=== PATIENT | female | born 1955 | race Hispanic/Latino ===

== ENCOUNTER 2017-08-13 15:28 | Emergency (ER) | payer BC, OTHER ==
[2017-08-13] MEDS ORDERED: MECLIZINE HCL 25 MG TABLET ONE (16:02)
[2017-08-13 16:04] LABS: BASOPHILS % (AUTO) 0.4 % (0.0-5.0); EOSINOPHILS % (AUTO) 1.7 % (0.0-8.0); HEMATOCRIT 40.5 % (36-48); LYMPHOCYTES % (AUTO) 37.1 % (21.0-51.0); MEAN CORPUSCULAR HEMOGLOBIN 29.7 pg (27.0-33.0); MEAN CORPUSCULAR VOLUME 87.5 fL (79-99); NEUTROPHILS % (AUTO) 51.8 % (40.0-77.0); PLATELET COUNT (AUTO) 224 K/uL (130-400); RED BLOOD CELL COUNT(AUTO) 4.63 MIL/uL (4.00-5.50); RED CELL DISTRIBUTION WIDTH 13.1 % (11.0-15.5); WHITE BLOOD COUNT (AUTO) 6.2 K/uL (4.8-10.8)
[2017-08-13 16:18] LABS: CREATININE 0.8 mg/dL (0.5-1.5); POTASSIUM 3.7 mmol/L (3.5-5.1)
[2017-08-13 16:23] LABS: ALBUMIN 3.7 g/dL (3.5-5.0); BILIRUBIN,TOTAL 0.3 mg/dL (0.2-1.0); TOTAL PROTEIN, SERUM 7.2 g/dL (6.0-8.3)
[2017-08-13 16:36] LABS: B-TYPE NATRIURETIC PEPTIDE 7 pg/mL (0-100)
== END 2017-08-13 17:33 | disposition home or self-care (01) ==
LOC: EDH 15:28
DX: H81.399 Other peripheral vertigo, unspecified ear (principal)
CPT/HCPCS: 36415; 80053; 83880; 84484; 85025; 87880; 93005

== ENCOUNTER → 2018-05-06 | Outpatient (CLI) | payer BC | END | disposition home or self-care (01) | LOC: SHCH 15:11 | PROVIDERS: ATTEND Internal Medicine Cardiovascular Disease | DX: R94.31 Abnormal electrocardiogram [ECG] [EKG] (principal) | CPT/HCPCS: 93306 ==

== ENCOUNTER 2018-10-22 07:10 | Emergency (ER) | payer BC ==
[2018-10-22 07:40] LABS: BASOPHILS % (AUTO) 0.6 % (0.0-5.0); EOSINOPHILS % (AUTO) 1.2 % (0.0-8.0); HEMATOCRIT 40.3 % (36-48); LYMPHOCYTES % (AUTO) 30.2 % (21.0-51.0); MEAN CORPUSCULAR HEMOGLOBIN 29.8 pg (27.0-33.0); MEAN CORPUSCULAR HGB CONC 33.8 g/dL (32.0-36.0); MEAN CORPUSCULAR VOLUME 88.1 fL (79-99); MONOCYTES % (AUTO) 7.4 % (3.0-13.0); NEUTROPHILS % (AUTO) 60.6 % (40.0-77.0); PLATELET COUNT (AUTO) 205 K/uL (130-400); RED BLOOD CELL COUNT(AUTO) 4.57 MIL/uL (4.00-5.50); WHITE BLOOD COUNT (AUTO) 5.3 K/uL (4.8-10.8)
[2018-10-22 07:49] LABS: CARBON DIOXIDE 24 mmol/L (21-32); CHLORIDE 105 mmol/L (101-111); CREATININE 0.7 mg/dL (0.5-1.5); GLOMERULAR FILTR. RATE CALC 90 mL/min (>60); GLUCOSE,RANDOM 151 mg/dL (70-105); POTASSIUM 4.7 mmol/L (3.5-5.1); SODIUM SERUM 140 mmol/L (136-145); UREA NITROGEN, BLOOD 22 mg/dL (7-18)
[2018-10-22 07:54] LABS: ALANINE AMINOTRANSFERASE 43 U/L (12-78); ALBUMIN 3.9 g/dL (3.5-5.0); ASPARTATE AMINOTRANSFERASE 42 U/L (10-37); BILIRUBIN,DIRECT < 0.1 mg/dL (0.0-0.3); BILIRUBIN,TOTAL 0.3 mg/dL (0.2-1.0); LIPASE 148 U/L (114-286); TOTAL PROTEIN, SERUM 7.7 g/dL (6.0-8.3)
[2018-10-22] MEDS ORDERED: ONDANSETRON HCL 4 MG/2 ML VIAL ONE (07:56)
[2018-10-22] MEDS ORDERED: KETOROLAC TROMETHAMINE 30MG/ML ONE (07:56)
[2018-10-22] MEDS ORDERED: ACETAMINOPHEN 325 MG TAB ONE (07:57)
[2018-10-22 08:06] LABS: APPEARANCE,URINE Clear (CLEAR); BILIRUBIN,URINE Negative (NEGATIVE); COLOR,URINE Yellow (YELLOW); GLUCOSE, URINE (UA) Negative (NEGATIVE); KETONES,URINE Negative (NEGATIVE); LEUKOCYTE ESTERASE ,URINE Negative (NEGATIVE); NITRATE,URINE Negative (NEGATIVE); OCCULT BLOOD,URINE Moderate (NEGATIVE); PROTEIN,URINE Negative (NEGATIVE)
[2018-10-22 08:42] LABS: BACTERIA,URINE Rare /HPF (None Seen); WBC,URINE 0-1 /HPF (0-1)
== END 2018-10-22 08:58 | disposition home or self-care (01) ==
LOC: EDH 07:10
DX: N13.2 Hydronephrosis with renal and ureteral calculous obstruction (principal); Z90.710 Acquired absence of both cervix and uterus; Z98.890 Other specified postprocedural states; Z87.891 Personal history of nicotine dependence
CPT/HCPCS: 36415; 74176; 80048; 80076; 81001; 83690; 84484; 85025; 93005; 96374; 96375; 99285; J1885; J2405

== ENCOUNTER 2022-04-06 19:24 | Emergency (ER) | payer BC, MEDICARE ==
[~2022-04-06] VITALS: Ht 154.9 cm; Wt 101.6 kg
[2022-04-06] MEDS ORDERED: DIPHENHYDRAMINE HCL 25 MG CAPSULE ONE (19:52)
[2022-04-06] MEDS ORDERED: FAMOTIDINE 20MG TAB ONE (19:52)
[2022-04-06] MEDS ORDERED: SOLU-MEDROL 125MG VIAL ONE (19:55)
[2022-04-06] MEDS ORDERED: DIPHENHYDRAMINE HCL 25 MG CAPSULE PO ONE (20:00)
[2022-04-06] MEDS ORDERED: FAMOTIDINE 20MG TAB PO ONE (20:00)
[2022-04-06] MEDS ORDERED: PRED20TA3 PO (20:53)
[2022-04-06] MEDS ORDERED: FAMO-136 PO (20:53)
[2022-04-06] MEDS ORDERED: CETI1SOL17 PO (20:53)
[2022-04-06 21:00] VITALS: BP 147/74
== END 2022-04-06 21:07 | disposition home or self-care (01) ==
LOC: EDH 19:24
DX: R22.0 Localized swelling, mass and lump, head (principal); T46.4X5A Adverse effect of angiotensin-converting-enzyme inhibitors, initial encounter; E66.9 Obesity, unspecified; I10 Essential (primary) hypertension; Z68.41 Body mass index [BMI] 40.0-44.9, adult; Z79.52 Long term (current) use of systemic steroids; Y92.89 Other specified places as the place of occurrence of the external cause
CPT/HCPCS: 99283; 96374; 87880; Q0163; J2930

== ENCOUNTER 2024-06-23 20:48 | Observation (INO) | payer MEDICARE ==
[~2024-06-23] VITALS: Ht 154.9 cm; Wt 102.1 kg
[~2024-06-23 20:48] MED LIST: CETI1SOL17 PO; FAMO-136 PO; PRED20TA3 PO
[2024-06-23 21:22] LABS: BASOPHILS # (AUTO) 0.03 K/uL (0.00-0.20); BASOPHILS % (AUTO) 0.3 % (0.0-5.0); EOSINOPHILS # (AUTO) 0.14 K/uL (0.00-0.70); EOSINOPHILS % (AUTO) 1.6 % (0.0-8.0); HEMATOCRIT 42.9 % (36-48); IMMATURE GRANULOCYTE ABSOLUTE 0.03 K/uL (0-1); LYMPHOCYTES # (AUTO) 4.4 K/uL (1.0-4.8); LYMPHOCYTES % (AUTO) 49.7 % (21.0-51.0); MEAN CORPUSCULAR HGB CONC 33.8 g/dL (32.0-36.0); MEAN CORPUSCULAR VOLUME 88.8 fL (79-99); MONOCYTES # (AUTO) 0.7 K/uL (0.1-1.0); MONOCYTES % (AUTO) 8.3 % (3.0-13.0); NEUTROPHILS # (AUTO) 3.6 K/uL (1.8-7.7); NEUTROPHILS % (AUTO) 39.8 % (40.0-77.0); NUCLEATED RED BLOOD CELLS 0.2 % (0.0-0.19); PLATELET COUNT (AUTO) 202 K/uL (130-400); RED BLOOD CELL COUNT(AUTO) 4.83 MIL/uL (4.00-5.50); RED CELL DISTRIBUTION WIDTH 12.9 % (11.0-15.5); WHITE BLOOD COUNT (AUTO) 8.9 K/uL (4.8-10.8)
[2024-06-23 21:29] LABS: CREATININE 0.9 mg/dL (0.5-1.0); POTASSIUM 3.6 mmol/L (3.5-5.1)
[2024-06-23 21:32] LABS: PROTHROMBIN TIME 10.8 SEC (9.6-11.6)
[2024-06-23 21:33] LABS: PARTIAL THROMBOPLASTIN TIME 26.5 SEC (26.3-35.5)
[2024-06-23 21:43] LABS: B-TYPE NATRIURETIC PEPTIDE 68 pg/mL (0-100)
[2024-06-23 21:45] LABS: ADD UA MICROSCOPIC YES; APPEARANCE,URINE CLEAR (CLEAR); BILIRUBIN,URINE NEGATIVE (NEGATIVE); COLOR,URINE COLORLESS (YELLOW); GLUCOSE, URINE (UA) 50 mg/dL (NEGATIVE); KETONES,URINE NEGATIVE (NEGATIVE); LEUKOCYTE ESTERASE ,URINE 25 Leu/uL (NEGATIVE); NITRATE,URINE NEGATIVE (NEGATIVE); PH,URINE 6.5 (5.0-8.0); PROTEIN,URINE NEGATIVE (NEGATIVE); UROBILINOGEN,URINE 0.2 mg/dL (0.2-1.0)
[2024-06-23 21:47] LABS: BACTERIA,URINE RARE /HPF (None Seen); MUCUS,URINE RARE LPF (None Seen); SQUAMOUS EPITHELIAL CELL,UR RARE /HPF (0-2); WBC CLUMP RARE /HPF (0-1)
--- NOTE | 2024-06-23 21:52 | ERN ---
ED Note History of Present Illness Stated Complaint: CHEST PAIN,SOB,HEADACHES,NAUSEA Chief Complaint: Chest Pain Time Seen by MD: 21:15 Dictation: This is a 69-year-old female who started experiencing midsternal chest pain and severe palpitations starting at 20 0 0 hours. Apparently she was doing dishes when she began experiencing this tightness radiating to the neck. She felt short of breath had some nausea and needed to burp. She does not have any cardiac history she reports dizziness and nonspecific headache but no loss of consciousness. No facial droop diplopia slurred speech motor weakness or seizure activity. She admits to taking her high blood pressure medications at home. Denied any thyroid problems. No fever chills or rigors. No history of any hematemesis or bleeding of any sort. Patient is not on any anticoagulation. She did not have this kind of an episode or event any time in the past. Initially when she arrived her heart rate was 173 and a stat EKG was obtained which showed supraventricular tachycardia. Within minutes she converted to normal sinus rhythm spontaneously. Temperature 98.8 pulse 176 respirations 20 blood pressure 177/128 with a pulse oximetry of 94% on room Known history of hypertension. Allergies: Coded Allergies: No Known Allergies (Unverified Allergy, Unknown, 04/06/22) Home Meds Active Scripts Cetirizine HCl (Zyrtec Syrup 1 mg/1 ml) 1 Mg/1 Ml Solution, 10 MG PO BID for 5 Days, #120 ML Prov:MOI ANGEL 04/06/22 Famotidine (Pepcid) 20 Mg Tablet, 20 MG PO BID, #30 TAB Prov:MOI ANGEL 04/06/22 Prednisone (Prednisone) 20 Mg Tablet, 40 MG PO DAILY for 5 Days, #10 TAB Prov:MOI ANGEL 04/06/22 Past Medical History Past Medical History: Hypertension Additional Past Medical Hx: Obesity Surgical History: Hysterectomy, Family History: Negative Social History: Negative History: Not Applicable RN Note Reviewed/Agreed w/PFSH: Yes Review of System Dictation Constitutional: Negative for fever,chills, and weight loss Eyes: Negative for injury, pain,redness, and discharge ENT: Negative for injury,pain or swelling Cardiovascular: Positive for chest pain, palpitations, and denies edema Respiratory: Positive for shortness of breath, denied cough, and wheezing, Abdomen/GI: Negative for abdominal pain, nausea, vomiting, diarrhea, and constipation Back: Negative for injury and pain : Negative for injury, bleeding and discharge MS/Extremity: Negative for injury and deformity Skin: Negative for rash, and discoloration Neuro: Positive for headache, denied weakness, numbness, tingling, and seizure Psych: Negative for suicide ideation, homicidal ideation, and hallucinations Initial Vital Sign VS Vital Signs Date Time Temp Pulse Resp B/P (MAP) Pulse Ox O2 Delivery O2 Flow Rate FiO2 06/23/24 20:57 98.8 176 20 177/128 98 Room Air 06/23/24 21:15 0 21 Physical Exam Dictation General: awake, alert, NAD morbidly obese, generally anxious Head/Face: Normocephalic, atraumatic Eyes: PERRL, EOMI, vision at baseline ENT: oral cavity clear, TMs clear, no signs of infection Neck: Trachea midline, supple, no nuchal rigidity Cardiovascular: RRR, normal S1/S2, No MRGs, no JVD Respiratory: CTAB, no respiratory distress, No rales or wheezes Abdomen: Soft, non-tender, non-distended, normal bowel sounds, no guarding or rebound. Skin: Warm, dry, normal turgor, no rash MS/Extremity: Pulses equal, no cyanosis, neurovascular intact, FROM Neuro: COAx4, GCS 15, strength 5/5, CN 2-12 intact, normal cerebellar exam, normal gait, Psych: Normal behavior, mood, and affect normal Extremities-trace edema without any palpable cords, Homans sign is negative Results (Laboratory/Radiology) Laboratory/Radiology Laboratory Tests Test 06/23/24 21:11 06/23/24 21:35 06/23/24 21:38 06/24/24 01:08 White Blood Count 8.9 K/uL (4.8-10.8) Red Blood Count 4.83 MIL/uL (4.00-5.50) Hemoglobin 14.5 g/dL (12.0-16.0) Hematocrit 42.9 % (36-48) Mean Corpuscular Volume 88.8 fL (79-99) Mean Corpuscular Hemoglobin 30.0 pg (27.0-33.0) Mean Corpuscular Hemoglobin Concent 33.8 g/dL (32.0-36.0) Red Cell Distribution Width 12.9 % (11.0-15.5) Platelet Count 202 K/uL (130-400) Mean Platelet Volume 10.7 fL (7.5-10.5) H Immature Granulocyte % (Auto) 0.3 % (0-1) Neutrophils (%) (Auto) 39.8 % (40.0-77.0) L Lymphocytes (%) (Auto) 49.7 % (21.0-51.0) Monocytes (%) (Auto) 8.3 % (3.0-13.0) Eosinophils (%) (Auto) 1.6 % (0.0-8.0) Basophils (%) (Auto) 0.3 % (0.0-5.0) Neutrophils # (Auto) 3.6 K/uL (1.8-7.7) Lymphocytes # (Auto) 4.4 K/uL (1.0-4.8) Monocytes # (Auto) 0.7 K/uL (0.1-1.0) Eosinophils # (Auto) 0.14 K/uL (0.00-0.70) Basophils # (Auto) 0.03 K/uL (0.00-0.20) Absolute Immature Granulocyte (auto 0.03 K/uL (0-1) Nucleated Red Blood Cells 0.2 % (0.0-0.19) H Prothrombin Time 10.8 SEC (9.6-11.6) Prothromb Time International Ratio 1.00 (0.85-1.15) Activated Partial Thromboplast Time 26.5 SEC (26.3-35.5) Sodium Level 143 mmol/L (136-145) Potassium Level 3.6 mmol/L (3.5-5.1) Chloride Level 107 mmol/L (101-111) Carbon Dioxide Level 28 mmol/L (21-32) Blood Urea Nitrogen 13 mg/dL (7-18) Creatinine 0.9 mg/dL (0.5-1.0) Glomerular Filtration Rate Calc 70 mL/min (>90) Random Glucose 204 mg/dL (70-105) H Total Calcium 8.9 mg/dL (8.5-10.1) Total Creatine Kinase 121 U/L (21-232) Troponin I High Sensitivity 12 ng/L (4-50) 83 ng/L (4-50) *H B-Type Natriuretic Peptide 68 pg/mL (0-100) Troponin I < 0.05 ng/mL (0.00-0.05) Urine Color COLORLESS (YELLOW) Urine Appearance CLEAR (CLEAR) Urine pH 6.5 (5.0-8.0) Urine Specific [place] 1.007 (1.001-1.031) Urine Protein NEGATIVE mg/dL (NEGATIVE) Urine Glucose (UA) 50 mg/dL (NEGATIVE) H Urine Ketones NEGATIVE mg/dL (NEGATIVE) Urine Occult Blood +- (TRACE) (NEGATIVE) H Urine Nitrate NEGATIVE (NEGATIVE) Urine Bilirubin NEGATIVE mg/dL (NEGATIVE) Urine Urobilinogen 0.2 mg/dL (0.2-1.0) Urine Leukocyte Esterase 25 Bradly/uL (NEGATIVE) H Urine RBC 2-5 /HPF (0-1) H Urine WBC 11-25 /HPF (0-1) H Urine WBC Clumps (Auto) RARE /HPF (0-1) Urine Squamous Epithelial Cells RARE /HPF (0-2) Urine Bacteria RARE /HPF (None Seen) Urine Hyaline Casts 2-5 /LPF (0-1 /LPF) H Labs Reviewed?: Yes EKG Comment: Twelve lead EKG done on 06/23/2024 at 9:01 p.m. showed a heart rate of 173 [place] interval 149 QRS 89 QT/QTC 285/483. Impression supraventricular tachycardia multiple PVCs, LVH. Repeat EKG done at 9:21 p.m. showed a sinus rhythm with a heart rate of 96, [place] 161, QRS 85, QT/QTC 381/482. Impression normal sinus rhythm with no acute ST-T elevations. She has Q-waves in the inferior leads more pronounced in lead 3. LVH noted. Both interpreted by Dr. Paniagua X-RAY Comment: PATIENT: SELIN MCKEON MR#: [id number] : 1955 SEX: F AGE: 69 LOCATION: [facility] ORDER 57 STATUS: REG REPORT#: [id number] SERVICE 57 REASON: CHEST PAIN ORDERING PHYSICIAN: TERRANCE PANIAGUA MD PROCEDURE: CXR1VW - CHEST 1VW CHEST 1VW CLINICAL HISTORY: CHEST PAIN COMPARISON: None TECHNIQUE: Single view of the chest was obtained. FINDINGS: Lungs are clear. The cardiac size and mediastinum are unremarkable. The bony structures are within normal limits. IMPRESSION: No acute cardiopulmonary process identified. DICTATED BY: WILNER ROGERS DO DATE: 06/23/242147 ELECTRONICALLY SIGNED BY: WILNER ROGERS DO DATE: 06/23/242149 ED Course ED Course Orders Procedure Category Date Status Time Vital Signs Per CPOE 06/23/24 Transmitted Routine 20:58 B-Type Natriuretic LAB 06/23/24 Complete Peptide 20:58 Chest 1vw RAD 06/23/24 Resulted 20:58 12 Lead Ekg Tracing- EKG 06/23/24 Logged Technical 20:58 Oxygen By Nc/Pulse Ox CPOE 06/23/24 Transmitted 20:58 Maintain Iv CPOE 06/23/24 Transmitted 20:58 Iv Insertion CPOE 06/23/24 Transmitted 20:58 Cardiac Monitoring CPOE 06/23/24 Transmitted 20:58 Pulse Oximetry With CPOE 06/23/24 Transmitted Vs And Prn 20:58 Cbc With Differential LAB 06/23/24 Complete 20:58 Activity: Br W/Brp CPOE 06/23/24 Transmitted With Assist 20:58 Creatine Kinase, Total LAB 06/23/24 Complete 20:58 Urinalysis Profile LAB 06/23/24 Complete 20:58 Troponin Poc Order LAB 06/23/24 Complete Only 20:58 Bedside Troponin-I LAB.ER 06/23/24 In Process (Poc) 20:58 Basic Metabolic Panel LAB 06/23/24 Complete 20:58 Pt And Ptt LAB 06/23/24 Complete 20:58 Troponin I High LAB 06/23/24 Complete Sensitivity 20:58 12 Lead Ekg Tracing- EKG 06/23/24 Logged Technical 21:13 Culture Urine SAGE 06/23/24 In Process 21:48 Metoprolol Tartrate PHA 06/23/24 Complete (Lopressor) 22:00 Edm Admit Bridge Order ADM 06/23/24 Transmitted 22:44 Admit Orders ADM 06/23/24 Transmitted 22:44 Vital Signs(Adult CPOE 06/23/24 Transmitted Hospitalist) 23:15 Daily Weights CPOE 06/23/24 Transmitted 23:15 I&O Q Shift CPOE 06/23/24 Transmitted 23:15 Acetaminophen 325 Tab PHA 06/23/24 In Process (Tylenol 325mg Tab 23:30 Acetaminophen 325 Tab PHA 06/23/24 In Process (Tylenol 325mg Tab 23:30 Ondansetron 4mg Inj PHA 06/23/24 In Process (Zofran 4mg Inj) 23:30 Nitroglycerin 0.4mg PHA 06/23/24 In Process Sl Tab (Nitrostat) 23:30 Nurse To Enter Home CPOE 06/23/24 Transmitted Medication 23:15 Admit Orders ADM 06/23/24 Transmitted 23:15 Condition: CPOE 06/23/24 Transmitted 23:15 Telemetry Monitoring CPOE 06/23/24 Transmitted 23:15 Heart Healthy Diet DIET 06/24/24 Transmitted Breakfast Apply Scds CPOE 06/23/24 Transmitted 23:15 Famotidine 20mg Tab PHA 06/24/24 In Process (Pepcid 20mg Tab) 09:00 Hydralazine 20mg Inj PHA 06/23/24 In Process (Apresoline 20mg In 23:30 Troponin I High LAB 06/24/24 In Process Sensitivity 04:00 Thyroid Stimulating LAB 06/24/24 In Process Hormone 04:00 Comprehensive LAB 06/24/24 In Process Metabolic Panel 04:00 Magnesium LAB 06/24/24 In Process 04:00 Hemoglobin A1c LAB 06/24/24 In Process 04:00 Lipid Panel LAB 06/24/24 In Process 04:00 Aspirin 81mg Ec Tab PHA 06/24/24 In Process (Aspirin 81mg Ec Tab 09:00 Troponin I High LAB 06/23/24 Complete Sensitivity 23:58 Troponin I High LAB 06/24/24 In Process Sensitivity 05:58 Troponin I High LAB 06/24/24 Logged Sensitivity 11:58 Echo 2-D Complete ECHO 06/23/24 Logged 23:58 Cardiology Consult CONPHYSVC 06/23/24 Transmitted 23:58 Initiate ASHLEY 06/24/24 In Process Hyperglycemia Protoco 00:01 Insulin Regular, PHA 06/24/24 In Process Human 3ml (Humulin R 07:30 Initiate Hypoglycemia ASHLEY 06/24/24 In Process Protocol 00:01 Dextrose 50%-Water PHA 06/24/24 In Process (D50w) 00:30 Glucagon 1mg Kit PHA 11/15/24 In Process (Glucagon 1mg Kit) 00:30 Magnesium 2gm Premix PHA 06/24/24 In Process 50ml (Magnesium 2gm 00:30 Initiate Po ASHLEY 06/24/24 In Process Hypokalemia Protoc 00:01 Potassium Chloride PHA 06/24/24 In Process 20meq/100ml ([place] 00:30 Potassium Chl 10% PHA 06/24/24 In Process Elixir 20meq (Kcl 10% 00:30 Potassium Chloride PHA 06/24/24 In Process 20meq Er (K-Dur/Klor- 00:30 Notify Physician If CPOE 06/24/24 Transmitted There Is 00:01 Notify Md On The Next CPOE 06/24/24 Transmitted 00:01 Notify Md On The CPOE 06/24/24 Transmitted Next(Cont.) 00:01 Cbc With Differential LAB 06/24/24 In Process 04:00 Current Medications Medications (Trade) Dose Ordered Sig/Claudia Route PRN Reason Start Time Stop Time Status Last Admin Dose Admin Metoprolol Tartrate (loprESSOR) 2.5 mg ONCE ONCE IV 06/23/24 22:00 06/23/24 22:38 DC 06/23/24 22:25 Vital Signs Date Time Temp Pulse Resp B/P (MAP) Pulse Ox O2 Delivery O2 Flow Rate FiO2 06/24/24 01:31 69 18 138/76 98 Room Air* 0 06/23/24 23:30 98.4 79 18 143/80 98 Room Air* 0 06/23/24 22:25 88 150/79 06/23/24 21:59 88 18 146/80 98 Room Air* 0 06/23/24 21:15 98 18 98 Room Air* 0 06/23/24 20:57 98.8 176 20 177/128 98 Room Air We will perform diagnostic labs, advanced imaging and administer medications according to the patient's complaint. Once the results are available, will review and personally interpreted the labs to rule out any acute life- threatening emergency the trach require immediate intervention and treatment. I will then re-evaluate the patient after treatment and diagnostic exams have return to determine whether the patient requires any further testing, can safely be discharged home or need further admission to hospital for additional treatment and evaluation. 10:00 p.m. CBC showed a white count of 8.9 hemoglobin 14.5 platelets 202. BNP 7 showed bicarb of 28 BUN and creatinine are 13 and 0.9. Chest x-ray is unremarkable for any acute infiltrate. I discussed all the findings with the patient and her daughter that the transient hypertensive emergency and palpitations with SVT warrant an admission to the hospital to further evaluate cardiac ischemia. They could have been likely related to the hypertension and she is extremely claustrophobic and refused to pursue any head CT at this time. Clinically she does not have any neurological deficits. Her GCS is 15 and NIH scale is 0 She is agreeable to admission to the hospital. By the hospitalist nurse practitioner kita for admission and further management HEART Score Response (Comments) Value History: Moderate suspicion (+1) 1 EKG: Repolarization changes 1 Age: > 65yrs (+2) 2 Risk Factors: 1-2 risk factors (+1) 1 Initial Troponin: Normal limit (0) 0 HEART Score Risk: Mod Risk for MACE (4-6) Total 5 Medical Decision Making MDM MDM: Differential diagnosis: Supraventricular tachycardia, atrial fibrillation, coronary event, hypertensive emergency Rationale: Tests considered and ordered secondary to shared decision making include: labs, ECG and radiology Previous outside records reviewed: Old ER visits. Risk of complication and/or morbidity or mortality of patient management: None Medications-Per medication reconciliation Need for hospitalization: Patient does meet criteria for hospitalization. Need for emergency major/minor surgery: No There are no social concerns with this patient. Prescription drug management Prescriptions will include symptomatic care Patient's prior external medical records from other ER visits were reviewed by me as indicated. Prior testing and results from previous visits were reviewed. Prior tests were taken into account with medical decision making and resource utilization, independent historian/historians were used to obtain complete medical history. I independently interpreted the test that were performed, results were reviewed by me and considered findings on radiology if ordered. Medical management and examination interpretation discussions were had by me wit h other qualified healthcare professionals as indicated for the patient's care. Problem List Problem List: (1) Supraventricular tachycardia (2) Hypertensive emergency (3) Headache (4) Chest pain (5) Acute coronary syndrome (6) Diastolic dysfunction DX & DISP Disposition: Inpatient Decision to Admit Time: 22:12 Departure Impression: Primary Impression: Chest pain Additional Impressions: Acute coronary syndrome, Hypertensive emergency, Headache, Supraventricular tachycardia, Diastolic dysfunction Condition: Stable Additional Instructions: Patient was informed of all the diagnostic labs and procedures conducted in the emergency room today and demonstrated understanding of the results. I personally reviewed and interpreted all the diagnostic exams performed in the ER today. The patient will be admitted to the hospital for further treatment and evaluation. Disposition-admit to facility Condition-stable/guarded Course-uncertain at this time Pain status-decreased Assessment-exam unchanged Admission Certification- I certify that the patients status is appropriate and is based on my best clinical judgment and the patient's condition as documented in the medical records Referrals: BEN HALE (PCP) TERRANCE PANIAGUA MD Jun 23, 2024 21:52
--- NOTE | 2024-06-23 22:13 | NUR ---
PATIENT REFUSING CT HEAD DUE TO CLAUSTROPHOBIA, ER MD AWARE, STATES IMAGING NOT NECESSARY, ORDER WILL BE CANCELLED, [facility] AWARE.
[2024-06-23] MEDS: metoPROLOL tartRATE 1 MG/ML 5ML VIAL IV ONE (22:25)
--- NOTE | 2024-06-23 22:36 | NUR ---
PATIENT STATES AT 8PM WHEN SHE STARTED TO FEEL PALPITATIONS TOOK HER 50MG OF METORPOLOL. MD NOTIFIED DC'D METOPROLOL IV.
--- NOTE | 2024-06-23 23:20 | HP ---
[facility] HISTORY AND PHYSICAL Date of Service: Jun 23, 2024 Time of Service: 23:20 PCP: Dory Cheung HISTORY OF PRESENT ILLNESS: This is a 69 year old female with past medical history of hypertension and morbid obesity who presents to the ED for complaints of palpitation starting around 8:00 p.m. today. Patient reports she was washing dishes when she began experiencing chest palpitation and she started having left sided chest pain described as sharp and pain radiates to her left side of neck associated with nausea, headache and dizziness.Patient states she then have her BP checked at home and it was 179/136 and took her Metoprolol 50mg and decided to come to the Ed for evaluation.Upon arrival to the ED an EKG was obtained and showed an SVT HR of 173 and within a minute patient converted back to sinus rhythm and chest pain was resolved.Patient reports this is the first time she experienced this symptoms.Patient states she has not seen a heat treat operator before. Seen and examined patient in the ER awake,alert and coherent.Patient appear comfortable.Patient reports she feels much better now.Patient denies vomiting ,abdominal pain,edema,cough,chills and fever. Vital signs temperature 98.4 heart rate 79 blood pressure 143/80 saturation 98% on room air. Labs: CBC unremarkable. Glucose 204 BNP 68 troponin high since 12 troponin one less than 0.05 the rest of the chemistry are all normal. Chest x-ray result is normal. We will admit patient for further medical management. REVIEW OF SYSTEMS CONSTITUTIONAL: Denies fevers, chills, or night sweats. No unintentional weight loss reported. NEUROLOGICAL: Complain of headache and dizziness Denies motor weakness, sensory deficit, gait abnormalities, or tremors. ENT: No hearing loss, otalgia, otorrhea, rhinitis, rhinorrhea, hoarseness, or sore throat. CARDIOVASCULAR: Complain of chest pain and palpitation Denies dyspnea on exertion, orthopnea, paroxysmal nocturnal dyspnea, claudication. PULMONARY: Denies any shortness of breath, cough, phlegm/sputum, hemoptysis, pleuritic chest pain. SLEEP: Denies morning headaches, daytime somnolence or napping. Denies difficul ty falling asleep, staying asleep, waking from sleep. Denies knowledge of snoring. GASTROINTESTINAL: Complain of nausea Denies any type of dysphagia to either liquids or solids. Denies vomiting, pyrosis, early satiety, abdominal pain, diarrhea, constipation, or changes in stool consistency or caliber. Denies coffee-ground emesis, hematemesis, hematochezia, or melanotic stools. GENITOURINARY: Denies frequency, urgency, nocturia, hematuria or incontinence (Storage/Irritative symptoms.) Low urinary stream, straining to void, urinary intermittency or hesitancy, splitting of the voiding stream, terminal dribbling. ENDOCRINOLOGIC: Denies polyuria, polydipsia, polyphagia or heat/cold intolerances. HEMATOLOGIC: Denies thrombophilia/previous clots, or coagulopathy/bleeding disorders. ONCOLOGIC: Denies personal history of malignancy. DERMATOLOGIC: Denies rashes or pruritus. PSYCHIATRIC: Denies any suicidal or homicidal ideation. Denies hallucinations. PAST MEDICAL HISTORY: [ Hypertension and morbid obesity ] PAST SURGICAL HISTORY: [ x2 ] PAST SOCIAL HISTORY: [ Patient lives with . Patient denies alcohol tobacco and recreational drug use ] FAMILY HISTORY: [ Noncontributory ] Coded Allergies: No Known Allergies (Unverified Allergy, Unknown, 04/06/22) PHYSICAL EXAM GENERAL APPEARANCE: Morbidly obese The patient is awake, alert, and oriented, in no acute cardiopulmonary distress. NEUROLOGICAL: Cranial nerves II-XII grossly intact. Motor is 5/5 in bilateral upper and lower extremities proximal to distal. No sensory deficits. HEENT: Face is symmetric. Pupils are equal and reactive. Extraocular movements are intact. NECK: Supple. No JVD. No thyromegaly. No submental, submandibular, pre- /postauricular, occipital or supraclavicular lymphadenopathy. CHEST: Normal chest expansion. No Telemetry. LUNGS: Absence of any rales, rhonchi or any wheezing. CARDIOVASCULAR: Regular. S1 and S2 normal. No appreciable rubs, murmurs or gallops. ABDOMEN: Soft, nontender, and nondistended. There is no rebound, voluntary guarding, or rigidity. : Deferred. No Garcia. EXTREMITIES: Non-edematous and not cyanotic. No clubbing. Good capillary refill. SKIN: No skin breakdown. Vital Sign (Last 24 Hours) 06/23/24 06/23/24 06/23/24 20:57 21:59 22:25 Temp 98.8 Pulse 88 Resp 18 B/P (MAP) 150/79 Pulse Ox 98 O2 Delivery Room Air* O2 Flow Rate 0 FiO2 21 LABS: Laboratory: Test 06/23/24 21:38 06/23/24 21:35 06/23/24 21:11 Range/Units Urine Color COLORLESS YELLOW Urine Appearance CLEAR CLEAR Urine pH 6.5 5.0-8.0 Urine Specific [place] 1.007 1.001-1.031 Urine Protein NEGATIVE NEGATIVE mg/dL Urine Glucose (UA) 50 H NEGATIVE mg/dL Urine Ketones NEGATIVE NEGATIVE mg/dL Urine Occult Blood +- (TRACE) H NEGATIVE Urine Nitrate NEGATIVE NEGATIVE Urine Bilirubin NEGATIVE NEGATIVE mg/dL Urine Urobilinogen 0.2 0.2-1.0 mg/dL Urine Leukocyte Esterase 25 H NEGATIVE Bradly/uL Urine RBC 2-5 H 0-1 /HPF Urine WBC 11-25 H 0-1 /HPF Urine WBC Clumps (Auto) RARE 0-1 /HPF Urine Squamous Epithelial Cells RARE 0-2 /HPF Urine Bacteria RARE None Seen /HPF Urine Hyaline Casts 2-5 H 0-1 /LPF /LPF Troponin I < 0.05 0.00-0.05 ng/mL White Blood Count 8.9 4.8-10.8 K/uL Red Blood Count 4.83 4.00-5.50 MIL/uL Hemoglobin 14.5 12.0-16.0 g/dL Hematocrit 42.9 36-48 % Mean Corpuscular Volume 88.8 79-99 fL Mean Corpuscular Hemoglobin 30.0 27.0-33.0 pg Mean Corpuscular Hemoglobin Concent 33.8 32.0-36.0 g/dL Red Cell Distribution Width 12.9 11.0-15.5 % Platelet Count 202 130-400 K/uL Mean Platelet Volume 10.7 H 7.5-10.5 fL Immature Granulocyte % (Auto) 0.3 0-1 % Neutrophils (%) (Auto) 39.8 L 40.0-77.0 % Lymphocytes (%) (Auto) 49.7 21.0-51.0 % Monocytes (%) (Auto) 8.3 3.0-13.0 % Eosinophils (%) (Auto) 1.6 0.0-8.0 % Basophils (%) (Auto) 0.3 0.0-5.0 % Neutrophils # (Auto) 3.6 1.8-7.7 K/uL Lymphocytes # (Auto) 4.4 1.0-4.8 K/uL Monocytes # (Auto) 0.7 0.1-1.0 K/uL Eosinophils # (Auto) 0.14 0.00-0.70 K/uL Basophils # (Auto) 0.03 0.00-0.20 K/uL Absolute Immature Granulocyte (auto 0.03 0-1 K/uL Nucleated Red Blood Cells 0.2 H 0.0-0.19 % Prothrombin Time 10.8 9.6-11.6 SEC Prothromb Time International Ratio 1.00 0.85-1.15 Activated Partial Thromboplast Time 26.5 26.3-35.5 SEC Sodium Level 143 136-145 mmol/L Potassium Level 3.6 3.5-5.1 mmol/L Chloride Level 107 101-111 mmol/L Carbon Dioxide Level 28 21-32 mmol/L Blood Urea Nitrogen 13 7-18 mg/dL Creatinine 0.9 0.5-1.0 mg/dL Glomerular Filtration Rate Calc 70 >90 mL/min Random Glucose 204 H 70-105 mg/dL Total Calcium 8.9 8.5-10.1 mg/dL Total Creatine Kinase 121 21-232 U/L Troponin I High Sensitivity 12 4-50 ng/L B-Type Natriuretic Peptide 68 0-100 pg/mL DIAGNOSTICS / RADIOLOGY: [ ] ASSESSMENT: New onset SVT POA Chest pain rule out ACS POA Uncontrolled hypertension POA Diastolic dysfunction POA Headache POA Morbid obesity POA Hyperglycemia (denies history of diabetes )POA PLAN: We will admit patient in medical telemetry We will start heart healthy diet We will start aspirin 81 mg p.o. daily We will start on Famotidine 20 mg bid for GI prophylaxis We will replace electrolytes as needed per protocol We will start on insulin sliding scale AC & HS with hypoglycemia protocol We will add prn medication for fever,pain,cough, nausea and vomiting We will reconcile home meds once medlist available We will trend troponin q.6 x3 We will obtain echocardiogram We will seek Cardiology consultation We will request labs in am Further orders to follow depending on above results Case discussed with attending physician and came up with above treatment and plan of care. ADVANCED CARE PLANNING 1. Which of the following were discussed? Hospice Care - No Therapeutic options - Yes Advance Directives - No Other discussions - 2. Discussed with who? Patient 3. Voluntary nature of this service was explained to the patient? Yes 4. Amount of time spent - __20 5. Reviewed by Physician? (if this service was performed by NPP) Yes Patient seen and examined by me. Agree with note by DEBT MANAGEMENT COUNSELOR SEE ADDITIONAL ORDERS PER CHART DISCUSSED WITH NURSING STAFF JOSE MIN ATHLETIC EQUIPMENT MANAGER Jun 23, 2024 23:20
[2024-06-23] MEDS ORDERED: acetaMINOPHEN 325 MG TAB PO PRN ×2 (23:30)
[2024-06-23] MEDS ORDERED: NITROGLYCERIN 0.4 MG SL TAB SL PRN (23:30)
[2024-06-23] MEDS ORDERED: hydrALAZine 20MG/ML VIAL IV PRN (23:30)
[2024-06-23] MEDS ORDERED: ondanSETRON 4MG INJ IV PRN (23:30)
--- NOTE | 2024-06-23 23:52 | NUR ---
L[place] RIVAS [phone]
[2024-06-24] MEDS ORDERED: PoTASSium chloRIDE 20MEQ/100ML 100 ML IV PRN (00:30)
[2024-06-24] MEDS ORDERED: GLUCAGON 1MG KIT 1 MG ML IM PRN (00:30)
[2024-06-24] MEDS ORDERED: DEXTROSE 50%-WATER 50 ML DISP.SYRIN IV PRN (00:30)
[2024-06-24] MEDS ORDERED: PoTASSium chl 10% ELIXIR 20MEQ 20 MEQ/15 ML UDCUP PO PRN (00:30)
[2024-06-24] MEDS ORDERED: MAGNESIUM 2GM PREMIX 50ML 50 ML IV PRN (00:30)
--- NOTE | 2024-06-24 05:34 | NUR ---
PATIENT DOES NOT CURRENTLY HAVE THE LIST OF HER MEDS- UNABLE TO RECONCILE
[2024-06-24 07:00] LABS: BASOPHILS # (AUTO) 0.03 K/uL (0.00-0.20); BASOPHILS % (AUTO) 0.4 % (0.0-5.0); EOSINOPHILS # (AUTO) 0.17 K/uL (0.00-0.70); EOSINOPHILS % (AUTO) 2.3 % (0.0-8.0); IMMATURE GRANULOCYTE ABSOLUTE 0.01 K/uL (0-1); LYMPHOCYTES # (AUTO) 3.2 K/uL (1.0-4.8); LYMPHOCYTES % (AUTO) 43.9 % (21.0-51.0); MEAN CORPUSCULAR HEMOGLOBIN 30.6 pg (27.0-33.0); MEAN CORPUSCULAR HGB CONC 34.1 g/dL (32.0-36.0); MEAN CORPUSCULAR VOLUME 89.7 fL (79-99); MONOCYTES # (AUTO) 0.7 K/uL (0.1-1.0); MONOCYTES % (AUTO) 9.5 % (3.0-13.0); NEUTROPHILS # (AUTO) 3.2 K/uL (1.8-7.7); NEUTROPHILS % (AUTO) 43.8 % (40.0-77.0); PLATELET COUNT (AUTO) 195 K/uL (130-400); RED BLOOD CELL COUNT(AUTO) 4.35 MIL/uL (4.00-5.50); RED CELL DISTRIBUTION WIDTH 12.8 % (11.0-15.5); WHITE BLOOD COUNT (AUTO) 7.3 K/uL (4.8-10.8)
[2024-06-24 07:11] LABS: HEMOGLOBIN A1C 6.1 % (4.0-6.0)
[2024-06-24] MEDS: INSULIN humuLIN R 100 UNIT/ML 3ML SQ SCH (07:30)
[2024-06-24 07:37] LABS: ALBUMIN 3.6 g/dL (3.5-5.0); BILIRUBIN,TOTAL 0.4 mg/dL (0.2-1.0); CREATININE 0.8 mg/dL (0.5-1.0); POTASSIUM 4.2 mmol/L (3.5-5.1); THYROID STIMULATING HORMONE 1.98 uIU/mL (0.36-3.74); TOTAL PROTEIN, SERUM 6.5 g/dL (6.0-8.3)
--- NOTE | 2024-06-24 07:48 | EKG ---
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
--- NOTE | 2024-06-24 07:50 | EKG ---
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 : 1955 Requested By: JOE GALLEGOS Order Number: [id number] Reading MD: Jonatan Sims Measurements Intervals [place] Rate: 96 P: 52 SC: 161 QRS: 15 QRSD: 85 T: 66 QT: 381 QTc: 482 Interpretive Statements Sinus rhythm Consider left ventricular hypertrophy Inferior infarct, old Compared to ECG 06/23/2024 21:01:29 Myocardial infarct finding now present Supraventricular tachycardia no longer present Ventricular premature complex(es) no longer present Electronically Signed On 06-27-2024 19:52:16 CLERICAL METHODS ANALYST by Jonatan Sims Please click the below link to view image of tracing.
[2024-06-24] MEDS: FAMOTIDINE 20MG TAB PO SCH (09:18)
[2024-06-24] MEDS: ASPIRIN 81 MG EC TAB PO SCH (09:18)
--- NOTE | 2024-06-24 11:37 | NUR ---
DR. BALL AT BED SIDE AND DUE TO NO HX OF DM, STOP THE BLOOD GLUCOSE AC/AND HS
--- NOTE | 2024-06-24 12:14 | NUR ---
DCP: HOME SW met with pt who states she lives with Que Soni Jr. Pt reports she is very independent and able to complete her ADLS, home management and meal prep on her own. Pt uses no in home care services or use DME. PCP is Terry Connors and uses [facility]. Pt denies dc needs and will return home at dc Addendum: 06/24/24 at 1217 by MUSTAPHA CASTRO Amended: Links added.
--- NOTE | 2024-06-24 13:54 | PN ---
[facility] PROGRESS NOTE Date of Service: Jun 24, 2024 Time of Service: 13:53 SUBJECTIVE: The patient has been seen and examined during my rounding, comfortable, no acute events overnight, hemodynamically stable, BP 122/65, heart rate controlled at 66, afebrile, saturating normal on room air. She denies chest pain, no shortness a breath, no palpitations, no nausea, no vomiting. REVIEW OF SYSTEMS CONSTITUTIONAL: Denies fevers, chills, or night sweats. No unintentional weight loss reported. NEUROLOGICAL: Complain of headache and dizziness Denies motor weakness, sensory deficit, gait abnormalities, or tremors. ENT: No hearing loss, otalgia, otorrhea, rhinitis, rhinorrhea, hoarseness, or sore throat. CARDIOVASCULAR: Complain of chest pain and palpitation Denies dyspnea on exertion, orthopnea, paroxysmal nocturnal dyspnea, claudication. PULMONARY: Denies any shortness of breath, cough, phlegm/sputum, hemoptysis, pleuritic chest pain. SLEEP: Denies morning headaches, daytime somnolence or napping. Denies difficulty falling asleep, staying asleep, waking from sleep. Denies knowledge of snoring. GASTROINTESTINAL: Complain of nausea Denies any type of dysphagia to either liquids or solids. Denies vomiting, pyrosis, early satiety, abdominal pain, diarrhea, constipation, or changes in stool consistency or caliber. Denies co ffee-ground emesis, hematemesis, hematochezia, or melanotic stools. GENITOURINARY: Denies frequency, urgency, nocturia, hematuria or incontinence (Storage/Irritative symptoms.) Low urinary stream, straining to void, urinary intermittency or hesitancy, splitting of the voiding stream, terminal dribbling. ENDOCRINOLOGIC: Denies polyuria, polydipsia, polyphagia or heat/cold intolerances. HEMATOLOGIC: Denies thrombophilia/previous clots, or coagulopathy/bleeding disorders. ONCOLOGIC: Denies personal history of malignancy. DERMATOLOGIC: Denies rashes or pruritus. PSYCHIATRIC: Denies any suicidal or homicidal ideation. Denies hallucinations. PHYSICAL EXAM GENERAL APPEARANCE: Morbidly obese The patient is awake, alert, and oriented, in no acute cardiopulmonary distress. NEUROLOGICAL: Cranial nerves II-XII grossly intact. Motor is 5/5 in bilateral upper and lower extremities proximal to distal. No sensory deficits. HEENT: Face is symmetric. Pupils are equal and reactive. Extraocular movements are intact. NECK: Supple. No JVD. No thyromegaly. No submental, submandibular, pre- /postauricular, occipital or supraclavicular lymphadenopathy. CHEST: Normal chest expansion. No Telemetry. LUNGS: Absence of any rales, rhonchi or any wheezing. CARDIOVASCULAR: Regular. S1 and S2 normal. No appreciable rubs, murmurs or gallops. ABDOMEN: Soft, nontender, and nondistended. There is no rebound, voluntary guarding, or rigidity. : Deferred. No Garcia. EXTREMITIES: Non-edematous and not cyanotic. No clubbing. Good capillary refill. SKIN: No skin breakdown. Vital Signs (last 8hr) Date Time Temp Pulse Resp B/P (MAP) Pulse Ox O2 Delivery O2 Flow Rate FiO2 06/24/24 06:09 98.1 66 18 122/65 98 Room Air* 0 21 LABS: Laboratory: Test 06/24/24 11:42 06/24/24 07:45 06/24/24 06:37 06/23/24 21:38 Range/Units Troponin I High Sensitivity 57 *H 4-50 ng/L Whole Blood Glucose 126 H 70-110 MG/DL White Blood Count 7.3 4.8-10.8 K/uL Red Blood Count 4.35 4.00-5.50 MIL/uL Hemoglobin 13.3 12.0-16.0 g/dL Hematocrit 39.0 36-48 % Mean Corpuscular Volume 89.7 79-99 fL Mean Corpuscular Hemoglobin 30.6 27.0-33.0 pg Mean Corpuscular Hemoglobin Concent 34.1 32.0-36.0 g/dL Red Cell Distribution Width 12.8 11.0-15.5 % Platelet Count 195 130-400 K/uL Mean Platelet Volume 10.8 H 7.5-10.5 fL Immature Granulocyte % (Auto) 0.1 0-1 % Neutrophils (%) (Auto) 43.8 40.0-77.0 % Lymphocytes (%) (Auto) 43.9 21.0-51.0 % Monocytes (%) (Auto) 9.5 3.0-13.0 % Eosinophils (%) (Auto) 2.3 0.0-8.0 % Basophils (%) (Auto) 0.4 0.0-5.0 % Neutrophils # (Auto) 3.2 1.8-7.7 K/uL Lymphocytes # (Auto) 3.2 1.0-4.8 K/uL Monocytes # (Auto) 0.7 0.1-1.0 K/uL Eosinophils # (Auto) 0.17 0.00-0.70 K/uL Basophils # (Auto) 0.03 0.00-0.20 K/uL Absolute Immature Granulocyte (auto 0.01 0-1 K/uL Nucleated Red Blood Cells 0.0 0.0-0.19 % Sodium Level 144 136-145 mmol/L Potassium Level 4.2 3.5-5.1 mmol/L Chloride Level 109 101-111 mmol/L Carbon Dioxide Level 31 21-32 mmol/L Blood Urea Nitrogen 12 7-18 mg/dL Creatinine 0.8 0.5-1.0 mg/dL Glomerular Filtration Rate Calc 80 >90 mL/min Random Glucose 128 H 70-105 mg/dL Hemoglobin A1c 6.1 H 4.0-6.0 % Estimated Average Glucose (eAG) 128 H 70-126 mg/dL Total Calcium 8.9 8.5-10.1 mg/dL Magnesium Level 2.00 1.80-2.40 mg/dL Total Bilirubin 0.4 0.2-1.0 mg/dL Aspartate Amino Transf (AST/SGOT) 31 10-37 U/L Alanine Aminotransferase (ALT/SGPT) 47 12-78 U/L Alkaline Phosphatase 79 50-136 U/L Total Protein 6.5 6.0-8.3 g/dL Albumin 3.6 3.5-5.0 g/dL Triglycerides Level 82 30-200 mg/dL Cholesterol Level 203 H <200 mg/dL LDL Cholesterol 129 H 0-99 mg/dL HDL Cholesterol 51 35-85 mg/dL Thyroid Stimulating Hormone (TSH) 1.98 0.36-3.74 uIU/mL Urine Color COLORLESS YELLOW Urine Appearance CLEAR CLEAR Urine pH 6.5 5.0-8.0 Urine Specific [place] 1.007 1.001-1.031 Urine Protein NEGATIVE NEGATIVE mg/dL Urine Glucose (UA) 50 H NEGATIVE mg/dL Urine Ketones NEGATIVE NEGATIVE mg/dL Urine Occult Blood +- (TRACE) H NEGATIVE Urine Nitrate NEGATIVE NEGATIVE Urine Bilirubin NEGATIVE NEGATIVE mg/dL Urine Urobilinogen 0.2 0.2-1.0 mg/dL Urine Leukocyte Esterase 25 H NEGATIVE Bradly/uL Urine RBC 2-5 H 0-1 /HPF Urine WBC 11-25 H 0-1 /HPF Urine WBC Clumps (Auto) RARE 0-1 /HPF Urine Squamous Epithelial Cells RARE 0-2 /HPF Urine Bacteria RARE None Seen /HPF Urine Hyaline Casts 2-5 H 0-1 /LPF /LPF Test 06/23/24 21:35 06/23/24 21:11 Range/Units Troponin I < 0.05 0.00-0.05 ng/mL Prothrombin Time 10.8 9.6-11.6 SEC Prothromb Time International Ratio 1.00 0.85-1.15 Activated Partial Thromboplast Time 26.5 26.3-35.5 SEC Total Creatine Kinase 121 21-232 U/L B-Type Natriuretic Peptide 68 0-100 pg/mL Current Medications Medications (Trade) Dose Ordered Sig/Claudia Route PRN Reason Start Time Stop Time Status Last Admin Dose Admin Acetaminophen (TYLenol 325MG TAB) 650 mg Q4H PRN PO MILD PAIN (1-3) 06/23/24 23:30 07/23/24 23:29 Acetaminophen (TYLenol 325MG TAB) 650 mg Q6H PRN PO TEMPERATURE GREATER THAN 101.5 06/23/24 23:30 07/23/24 23:29 Aspirin (Aspirin 81mg Ec Tab) 81 mg DAILY PO 06/24/24 09:00 07/24/24 08:59 06/24/24 09:18 81 MG Dextrose (D50w) 50 ml AD PRN IV HYPOGLYCEMIA PROTOCOL 06/24/24 00:30 07/24/24 00:29 Famotidine (Pepcid 20mg Tab) 20 mg BID PO 06/24/24 09:00 07/24/24 08:59 06/24/24 09:18 20 MG Glucagon (Glucagon 1mg Kit) 1 mg AD PRN IM HYPOGLYCEMIA PROTOCOL 06/24/24 00:30 07/24/24 00:29 Hydralazine HCl (APRESOLine 20MG INJ) 10 mg Q6H PRN IV For:SBP above 160;DBP above 90 06/23/24 23:30 07/23/24 23:29 Insulin Human Regular (humuLIN R 100 UNIT/ML 3ML) INSULIN SLIDING SCAL... ACHS SQ 06/24/24 07:30 06/24/24 12:07 DC Magnesium Sulfate 50 ml @ 0 mls/hr PROTOCOL PRN IV OTHER [SEE ORDER COMMENTS] 06/24/24 00:30 07/24/24 00:29 Nitroglycerin (Nitrostat) 0.4 mg PROTOCOL PRN SL CHEST PAIN 06/23/24 23:30 07/23/24 23:29 Ondansetron HCl (zoFRAN 4MG INJ) 4 mg Q6H PRN IV NAUSEA/VOMITING 06/23/24 23:30 07/23/24 23:29 Potassium Chloride 100 ml @ 100 mls/hr AD PRN IV POTASSIUM PROTOCOL 06/24/24 00:30 07/24/24 00:29 Potassium Chloride (K-Dur/Klor-Con 20meq) 20 meq AD PRN PO POTASSIUM PROTOCOL 06/24/24 00:30 07/24/24 00:29 Potassium Chloride (KCl 10% Elixir 20meq/15ml) 20 meq AD PRN PO POTASSIUM PROTOCOL 06/24/24 00:30 07/24/24 00:29 DIAGNOSTICS / RADIOLOGY: [ ] ASSESSMENT: New onset SVT POA Chest pain rule out ACS POA Uncontrolled hypertension POA Diastolic dysfunction POA Headache POA Morbid obesity POA Hyperglycemia (denies history of diabetes )POA PLAN: The patient to be admitted medical floor 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 daily Continue on Famotidine 20 mg bid for GI prophylaxis Continue to replace electrolytes as needed per protocol Continue start on insulin sliding scale AC & HS with hypoglycemia protocol Continue prn medication for fever,pain,cough, nausea and vomiting We will review home medications Continue to trend troponin Echocardiogram to evaluate ejection fraction Cardiology consultation requested, follow input recommendation We will request labs in am Further orders to follow depending on above results Case discussed with attending physician and came up with above treatment and plan of care. ZEE BALL MD Jun 24, 2024 13:54
[2024-06-24] MEDS ORDERED: METO-391 PO (14:10)
[2024-06-24 15:15] VITALS: BP 115/84; PULSE 72; RESP 20; TEMP 97
--- NOTE | 2024-06-24 15:15 | NUR ---
RECEIVED PATIENT FROM ER VIA STRETCHER AFTER RECEIVING REPORT FROM GRIS ZHANG.
[2024-06-24 16:00] VITALS: O2SAT 97
--- NOTE | 2024-06-24 16:00 | NUR ---
ASSESSMENT COMPLETED AND DOCUMENTED. TELEMETRY #6 SHOWING SINUS RHYTHM HR 67. PATIENT OUT OF BED AMBULATING IN ROOM. NO CONCERNS VOICED.
[2024-06-24] MEDS ORDERED: hydrALAZine 20MG/ML VIAL IV PRN (17:30)
--- NOTE | 2024-06-24 18:31 | HMCSR ---
APPROVED REPORT EXAM: Two-dimensional and M-mode echocardiogram with Doppler and color Doppler. Study Details: Hx: HTN, morbid obesity INDICATION ICD: Chest Pain 2D Dimensions RVDd3.6 cmLVEF(%)73.2 (>50%)LVED Vol(simp.)97.1 mL IVSd1.1 (0.7-1.1cm)FS(%)42 %LVES Vol(simp.)30.0 mL LVDd4.3 (3.8-5.6cm)LA (2D)5.0 (1.6-4.0cm)LVEF(%, simp.)69 % PWd1.2 (0.7-1.1cm)Ao Root(2D)3.3 (2.0-3.7cm)LA ESV INDEX (4CH)32.70 mL/m2 IVSs1.3 cmLVOT diam2.2 (1.8-2.4cm) LVDs2.5 (2.5-4.0cm) PWs1.1 cm Deformation Strain Apical 421.0 % Apical 227.0 % Apical 326.0 % Global Sdgvqf24.0 % M-Mode Dimensions EPSS0.5 cm LA (MM)4.9 (1.6-4.0cm) Ao Root(MM)2.6 (2.0-3.7cm) Aortic Valve AoV VTI0.5 mAo Mean GR12.0 mmHgLVOT VTI0.31 m GISELLA (VMAX)2.2 cm2AVA (VTI) 2.2 cm2 Mitral Valve MV E Vmax62.6 cm/sDECEL Ntwp844 ms MV A Vmax76.6 cm/sP 1/2 T60 ms E/A ratio0.8MVA (PHT)3.7 cm2 MR Max PG17 mmHg TDI E/E' Coukjc60.9E/E' Tvectwg78.1 Medial E' Peak V4.20 cm/sLateral E' Peak V6.20 cm/s Pulmonary Valve PV VTI0.29 mPV Mean GR3 mmHg Tricuspid Valve TR Vmax2.4 m/sRAP (EST) 8 zaNxZAMC62.6 mmHg TR Peak GR23.6 mmHg Left Ventricle Left ventricular cavity size is normal. There is normal left ventricular wall thickness. LVEF is >70% . Stage I diastolic dysfunction. Right Ventricle The right ventricle is normal size. The right ventricular systolic function is normal. Atria The left atrium size is normal. The right atrium is mildly dilated. Aortic Valve Aortic valve is trileaflet and opens well. Aortic valve leaflets are thickened and calcified. No aort ic regurgitation is present. There is no aortic valvular stenosis. There is mild anular calcification Mitral Valve Mitral valve leaflets open well. There is no mitral valve regurgitation noted. There is no mitral jeevan ve stenosis. Tricuspid Valve The tricuspid valve leaflets appear normal. There is trace of tricuspid valve regurgitation noted. Pulmonic Valve The pulmonary valve is normal in structure and function. There is no pulmonic valvular regurgitation. Great Vessels The aortic root is normal in size. IVC is normal in size and collapses <50% with inspiration. Pericardium No pericardial effusion. Other Information Quality : Good Conclusion Left ventricular cavity size is normal. LVEF is >70%. Stage I diastolic dysfunction. Mitral valve leaflets open well. Mild aortic anular calcification
[2024-06-24 19:54] VITALS: BP 132/68; PULSE 59; RESP 18; TEMP 98.4
[2024-06-24 20:00] VITALS: O2SAT 97
--- NOTE | 2024-06-24 23:52 | CONS ---
CARDIOLOGY CONSULTATION HISTORY OF PRESENT ILLNESS: This is a very pleasant 69-year-old woman, who is on her usual state of health. She is generally very physically active. She was sitting. She suddenly developed palpitations. She felt rapid heartbeat followed by substernal chest pressure, which radiated into her neck and down her arm. Palpitations continued for several minutes. She took her evening dose of metoprolol and 30 minutes later, the pain and palpitations subsided. She felt well, but presented to the Emergency Room. In the Emergency Room, she was found to have elevated troponins and is now being admitted for further evaluation. She has no personal history of coronary disease, but she has a very strong family history of coronary disease. Her father of myocardial infarction. Her mother also suddenly of unknown cause. She has multiple other relatives who had relatively early onset of coronary disease. She is active. She is an avid swimmer and swims about an hour with 3-4 times a week. She has no difficulty with the swim. 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 She has gained significant amount of weight since her mobility is decreased by arthritis. She has hypertension and dyslipidemia, both of which are under controlled. REVIEW OF SYSTEMS: Otherwise, unremarkable. PHYSICAL EXAMINATION: VITAL SIGNS: Currently, her blood pressure is 120/49. HEENT: Unremarkable. She appears to be younger than her stated age. NECK: Shows no jugular venous distention. LUNGS: Relatively clear, but distant secondary to obesity. CARDIAC: Heart sounds are also distant. There is no S3, no S4. There is no murmur. ABDOMEN: Obese. EXTREMITIES: There is good pulses noted in the lower extremities. DIAGNOSTIC STUDIES: Electrocardiogram shows no evidence of ischemia. She is in sinus rhythm. There are occasional PVCs. There was a small probably not significant inferior Q-waves that are quite narrow. Electrocardiogram will be repeated. LABORATORY DATA: Major finding is, she has a mildly elevated high sensitivity CRP. ASSESSMENT AND PLAN: High sensitivity CRP with typical chest pain. She is currently stable. She will undergo thallium stress scintigraphy and echocardiogram. Further plan based on findings of the above. Thank you for allowing me to participate in management of this lady. TID: [id number] RECEIPT: [id number]
[2024-06-24 23:56] VITALS: BP 123/58; PULSE 60; RESP 18; TEMP 98.4
[2024-06-25] VITALS (7 sets, daily range): BP systolic 120–140; BP diastolic 60–74; PULSE 62–75; RESP 16–18; TEMP 97.6–98.4; O2SAT 98
--- NOTE | 2024-06-25 10:30 | NUR ---
TAKEN TO NUCLEAR MED DEPT FOR STRESS TEST.
--- NOTE | 2024-06-25 11:49 | PN ---
[facility] PROGRESS NOTE Date of Service: Jun 25, 2024 Time of Service: 11:[address] Mead SUBJECTIVE: The patient has been seen and examined during my rounding, comfortable, no acute events overnight, hemodynamically stable, BP 122/65, heart rate controlled at 66, afebrile, saturating normal on room air. She denies chest pain, no shortness a breath, no palpitations, no nausea, no vomiting. 06/25/24 patient was seen by PLASTIC MAKER and physician during rounding in room 220 comfortably lying in the bed. Patient's urine is growing E coli. PLASTIC MAKER was scheduled patient on levofloxacin 500 mg daily. Patient is running sinus bradycardia as low as 58 heart rate. Patient was evaluated by animal science instructor Dr. Alatorre 2D echo showed more than 70% EF fracture stage I diastolic dysfunction. Patient is pending Lexiscan today 06/25/2024. We will continue to monitor patient in the meantime. A.m. labs REVIEW OF SYSTEMS CONSTITUTIONAL: Denies fevers, chills, or night sweats. No unintentional weight loss reported. NEUROLOGICAL: Complain of headache and dizziness Denies motor weakness, sensory deficit, gait abnormalities, or tremors. ENT: No hearing loss, otalgia, otorrhea, rhinitis, rhinorrhea, hoarseness, or sore throat. CARDIOVASCULAR: Complain of chest pain and palpitation Denies dyspnea on exertion, orthopnea, paroxysmal nocturnal dyspnea, claudication. PULMONARY: Denies any shortness of breath, cough, phlegm/sputum, hemoptysis, pleuritic chest pain. SLEEP: Denies morning headaches, daytime somnolence or napping. Denies difficulty falling asleep, staying asleep, waking from sleep. Denies knowledge of snoring. GASTROINTESTINAL: Complain of nausea Denies any type of dysphagia to either liquids or solids. Denies vomiting, pyrosis, early satiety, abdominal pain, diarrhea, constipation, or changes in stool consistency or caliber. Denies coffee-ground emesis, hematemesis, hematochezia, or melanotic stools. GENITOURINARY: Denies frequency, urgency, nocturia, hematuria or incontinence (Storage/Irritative symptoms.) Low urinary stream, straining to void, urinary intermittency or hesitancy, splitting of the voiding stream, terminal dribbling. ENDOCRINOLOGIC: Denies polyuria, polydipsia, polyphagia or heat/cold intolerances. HEMATOLOGIC: Denies thrombophilia/previous clots, or coagulopathy/bleeding disorders. ONCOLOGIC: Denies personal history of malignancy. DERMATOLOGIC: Denies rashes or pruritus. PSYCHIATRIC: Denies any suicidal or homicidal ideation. Denies hallucinations. PHYSICAL EXAM GENERAL APPEARANCE: Morbidly obese The patient is awake, alert, and oriented, in no acute cardiopulmonary distress. NEUROLOGICAL: Cranial nerves II-XII grossly intact. Motor is 5/5 in bilateral upper and lower extremities proximal to distal. No sensory deficits. HEENT: Face is symmetric. Pupils are equal and reactive. Extraocular movements are intact. NECK: Supple. No JVD. No thyromegaly. No submental, submandibular, pre- /postauricular, occipital or supraclavicular lymphadenopathy. CHEST: Normal chest expansion. No Telemetry. LUNGS: Absence of any rales, rhonchi or any wheezing. CARDIOVASCULAR: Regular. S1 and S2 normal. No appreciable rubs, murmurs or gallops. ABDOMEN: Soft, nontender, and nondistended. There is no rebound, voluntary gu arding, or rigidity. : Deferred. No Garcia. EXTREMITIES: Non-edematous and not cyanotic. No clubbing. Good capillary refill. SKIN: No skin breakdown. Vital Signs (last 8hr) Date Time Temp Pulse Resp B/P (MAP) Pulse Ox O2 Delivery O2 Flow Rate FiO2 06/25/24 07:46 97.5 62 16 132/70 95 Room Air 06/25/24 07:43 98 Room Air* 0 21 06/25/24 04:20 98.4 69 18 120/60 97 Room Air LABS: Laboratory: Test 06/24/24 11:42 06/24/24 07:45 06/24/24 06:37 06/23/24 21:38 Range/Units Troponin I High Sensitivity 57 *H 4-50 ng/L Whole Blood Glucose 126 H 70-110 MG/DL White Blood Count 7.3 4.8-10.8 K/uL Red Blood Count 4.35 4.00-5.50 MIL/uL Hemoglobin 13.3 12.0-16.0 g/dL Hematocrit 39.0 36-48 % Mean Corpuscular Volume 89.7 79-99 fL Mean Corpuscular Hemoglobin 30.6 27.0-33.0 pg Mean Corpuscular Hemoglobin Concent 34.1 32.0-36.0 g/dL Red Cell Distribution Width 12.8 11.0-15.5 % Platelet Count 195 130-400 K/uL Mean Platelet Volume 10.8 H 7.5-10.5 fL Immature Granulocyte % (Auto) 0.1 0-1 % Neutrophils (%) (Auto) 43.8 40.0-77.0 % Lymphocytes (%) (Auto) 43.9 21.0-51.0 % Monocytes (%) (Auto) 9.5 3.0-13.0 % Eosinophils (%) (Auto) 2.3 0.0-8.0 % Basophils (%) (Auto) 0.4 0.0-5.0 % Neutrophils # (Auto) 3.2 1.8-7.7 K/uL Lymphocytes # (Auto) 3.2 1.0-4.8 K/uL Monocytes # (Auto) 0.7 0.1-1.0 K/uL Eosinophils # (Auto) 0.17 0.00-0.70 K/uL Basophils # (Auto) 0.03 0.00-0.20 K/uL Absolute Immature Granulocyte (auto 0.01 0-1 K/uL Nucleated Red Blood Cells 0.0 0.0-0.19 % Sodium Level 144 136-145 mmol/L Potassium Level 4.2 3.5-5.1 mmol/L Chloride Level 109 101-111 mmol/L Carbon Dioxide Level 31 21-32 mmol/L Blood Urea Nitrogen 12 7-18 mg/dL Creatinine 0.8 0.5-1.0 mg/dL Glomerular Filtration Rate Calc 80 >90 mL/min Random Glucose 128 H 70-105 mg/dL Hemoglobin A1c 6.1 H 4.0-6.0 % Estimated Average Glucose (eAG) 128 H 70-126 mg/dL Total Calcium 8.9 8.5-10.1 mg/dL Magnesium Level 2.00 1.80-2.40 mg/dL Total Bilirubin 0.4 0.2-1.0 mg/dL Aspartate Amino Transf (AST/SGOT) 31 10-37 U/L Alanine Aminotransferase (ALT/SGPT) 47 12-78 U/L Alkaline Phosphatase 79 50-136 U/L Total Protein 6.5 6.0-8.3 g/dL Albumin 3.6 3.5-5.0 g/dL Triglycerides Level 82 30-200 mg/dL Cholesterol Level 203 H <200 mg/dL LDL Cholesterol 129 H 0-99 mg/dL HDL Cholesterol 51 35-85 mg/dL Thyroid Stimulating Hormone (TSH) 1.98 0.36-3.74 uIU/mL Urine Color COLORLESS YELLOW Urine Appearance CLEAR CLEAR Urine pH 6.5 5.0-8.0 Urine Specific [place] 1.007 1.001-1.031 Urine Protein NEGATIVE NEGATIVE mg/dL Urine Glucose (UA) 50 H NEGATIVE mg/dL Urine Ketones NEGATIVE NEGATIVE mg/dL Urine Occult Blood +- (TRACE) H NEGATIVE Urine Nitrate NEGATIVE NEGATIVE Urine Bilirubin NEGATIVE NEGATIVE mg/dL Urine Urobilinogen 0.2 0.2-1.0 mg/dL Urine Leukocyte Esterase 25 H NEGATIVE [place]/uL Urine RBC 2-5 H 0-1 /HPF Urine WBC 11-25 H 0-1 /HPF Urine WBC Clumps (Auto) RARE 0-1 /HPF Urine Squamous Epithelial Cells RARE 0-2 /HPF Urine Bacteria RARE None Seen /HPF Urine Hyaline Casts 2-5 H 0-1 /LPF /LPF Test 06/23/24 21:35 06/23/24 21:11 Range/Units Troponin I < 0.05 0.00-0.05 ng/mL Prothrombin Time 10.8 9.6-11.6 SEC Prothromb Time International Ratio 1.00 0.85-1.15 Activated Partial Thromboplast Time 26.5 26.3-35.5 SEC Total Creatine Kinase 121 21-232 U/L B-Type Natriuretic Peptide 68 0-100 pg/mL Current Medications Medications (Trade) Dose Ordered Sig/Claudia Route PRN Reason Start Time Stop Time Status Last Admin Dose Admin Acetaminophen (TYLenol 325MG TAB) 650 mg Q4H PRN PO MILD PAIN (1-3) 06/23/24 23:30 07/23/24 23:29 Acetaminophen (TYLenol 325MG TAB) 650 mg Q6H PRN PO TEMPERATURE GREATER THAN 101.5 06/23/24 23:30 07/23/24 23:29 Aspirin (Aspirin 81mg Ec Tab) 81 mg DAILY PO 06/24/24 09:00 07/24/24 08:59 06/25/24 09:00 81 MG Dextrose (D50w) 50 ml AD PRN IV HYPOGLYCEMIA PROTOCOL 06/24/24 00:30 07/24/24 00:29 Famotidine (Pepcid 20mg Tab) 20 mg BID PO 06/24/24 09:00 07/24/24 08:59 06/25/24 09:01 20 MG Glucagon (Glucagon 1mg Kit) 1 mg AD PRN IM HYPOGLYCEMIA PROTOCOL 06/24/24 00:30 07/24/24 00:29 Hydralazine HCl (APRESOLine 20MG INJ) 5 mg Q6H PRN IV For:SBP above 160;DBP above 90 06/24/24 17:30 07/24/24 17:29 Hydralazine HCl (APRESOLine 20MG INJ) 10 mg Q6H PRN IV For:SBP above 160;DBP above 90 06/23/24 23:30 06/24/24 13:56 DC Insulin Human Regular (humuLIN R 100 UNIT/ML 3ML) INSULIN SLIDING SCAL... ACHS SQ 06/24/24 07:30 06/24/24 12:07 DC Levofloxacin (LEvaquIN 500MG TAB) 500 mg DAILY PO 06/26/24 09:00 07/06/24 08:59 Magnesium Sulfate 50 ml @ 0 mls/hr PROTOCOL PRN IV OTHER [SEE ORDER COMMENTS] 06/24/24 00:30 07/24/24 00:29 Nitroglycerin (Nitrostat) 0.4 mg PROTOCOL PRN SL CHEST PAIN 06/23/24 23:30 07/23/24 23:29 Ondansetron HCl (zoFRAN 4MG INJ) 4 mg Q6H PRN IV NAUSEA/VOMITING 06/23/24 23:30 07/23/24 23:29 Potassium Chloride 100 ml @ 100 mls/hr AD PRN IV POTASSIUM PROTOCOL 06/24/24 00:30 07/24/24 00:29 Potassium Chloride (K-Dur/Klor-Con 20meq) 20 meq AD PRN PO POTASSIUM PROTOCOL 06/24/24 00:30 07/24/24 00:29 Potassium Chloride (KCl 10% Elixir 20meq/15ml) 20 meq AD PRN PO POTASSIUM PROTOCOL 06/24/24 00:30 07/24/24 00:29 Regadenoson (Lexiscan) 0.4 mg ONCE IVP 06/25/24 11:00 06/26/24 10:59 DIAGNOSTICS / RADIOLOGY: [ ] ASSESSMENT: New onset SVT POA Chest pain rule out ACS POA Uncontrolled hypertension POA Diastolic dysfunction POA Headache POA Morbid obesity POA Hyperglycemia (denies history of diabetes )POA PLAN: Lexiscan 06/25 The patient to be admitted medical floor Continue court recording monitor Continue eart healthy diet Continue aspirin 81 mg p.o. daily Continue on Famotidine 20 mg bid for GI prophylaxis Continue to replace electrolytes as needed per protocol Continue start on insulin sliding scale AC & HS with hypoglycemia protocol Continue prn medication for fever,pain,cough, nausea and vomiting We will review home medications Continue to trend troponin Echocardiogram to evaluate ejection fraction Cardiology consultation requested, follow input recommendation We will request labs in am Further orders to follow depending on above results Case discussed with attending physician and came up with above treatment and plan of care. ATTESTATION BY PHYSICIAN I have seen and examined the patient. I reviewed the documentation, medical decision making, and treatment plan as noted by the mid-level provider above. I agree with the findings and plan of care. MD TAMIKA Mead KATARZYNA B LANE MARKER INSTALLER Jun 25, 2024 11:49
[2024-06-25] MEDS: REGADENOSON 0.4 MG/5 ML PF SYG IVP SCH (13:04)
--- NOTE | 2024-06-25 17:52 | HMCSR ---
APPROVED REPORT TEST INDICATIONS Chest Pain, Palpitations The imaging protocol used to acquire images was Rest Tc-99m/stress Tc-99m 1 day Consent: The procedure was explained and understood by the patient. Informerd consent was witnessed RESHMA Del Angel First, low dose rest was performed then high dose stress. RESTING DATA: The resting ekg shows: NSR Rest SPECT myocardial perfusion imaging was performed in supine position minutes following the intra venous injection of 11 mCi of Tc-99 Sestamibi. Time of rest injection: 1050 Date: 06/25/2024 PHARMACOLOGIC STRESS: Pharmacologic stress test was performed by injecting regadenoson 0.4 mg IV push followed by the intra venous injection of 28 mCi of Tc-99 Sestamibi. Time of stress injection: 1305 Date: 06/25/2024 Heart Rate at time of stress injection: 57 bpm. The images were gated to evaluate regional wall motion and calculate left ventricular ejection fracti on. STRESS DETAILS Reason for Termination: Infusion complete Stress Symptoms: palpitations Max HR Achieved: 108 bpm % of APMHR Achieved: 83 Max Blood Pressure: 161/76 mmHg Stress ECG: NSR LV PERFUSION Small to modeerate lateral ischemic defect Normal EF at 62% No stress induced LV diilation Low to moderate risk Conclusion Normal EF smalll to moderate lv ischemic risk
--- NOTE | 2024-06-25 21:12 | PN ---
FOLLOWUP NOTE SUBJECTIVE: She is currently doing well. She has not ambulated to any degree. She has been in the bed all day, attempted to get up and she became dizzy. She went right back to bed. I discussed with her the role of exercise for treatment. She understands. She is an avid swimmer and will continue her swimming program. I have asked her also to add perhaps some bicycling or some other form of activity, she will comply. The addition of swimming and bicycling even though she does exercise more than the minimal guidelines in other form may be also helpful. She had no further symptoms here in the hospital, and her blood pressure is controlled. Her exam is not changed. Electrocardiogram and monitors not changed. I have discussed with her options. She does have a moderately positive stress test with a small area of lateral ischemia. I have given her all options. One option is to continue medical management as she has been on suboptimal therapy for coronary artery disease versus a left heart catheterization. She is requested to proceed with medical management, which I agree given the small size and the absence of full anti-ischemic therapy. She will be monitored overnight for atrial fibrillation. I have discussed with her a smart device, which may monitor for atrial fibrillation or she may require some type of external monitoring. She understands. From a cardiac standpoint, she is stable, she will likely be discharged in the a.m. on her current medications and prescriptions are written. In addition, I have asked her to see me in followup in 1 week. Thank you for allowing me to participate in management of this very pleasant lady. TID: [id number] RECEIPT: [id number]
[2024-06-26 00:11] VITALS: BP 132/67; PULSE 75; RESP 18; TEMP 98.7
[2024-06-26 03:38] VITALS: BP 139/63; PULSE 62; RESP 18; TEMP 98.6
[2024-06-26 03:47] LABS: BASOPHILS # (AUTO) 0.03 K/uL (0.00-0.20); BASOPHILS % (AUTO) 0.5 % (0.0-5.0); EOSINOPHILS # (AUTO) 0.19 K/uL (0.00-0.70); EOSINOPHILS % (AUTO) 2.9 % (0.0-8.0); HEMATOCRIT 40.1 % (36-48); IMMATURE GRANULOCYTE ABSOLUTE 0.01 K/uL (0-1); LYMPHOCYTES # (AUTO) 3.1 K/uL (1.0-4.8); LYMPHOCYTES % (AUTO) 46.6 % (21.0-51.0); MEAN CORPUSCULAR HEMOGLOBIN 29.8 pg (27.0-33.0); MEAN CORPUSCULAR HGB CONC 32.7 g/dL (32.0-36.0); MEAN CORPUSCULAR VOLUME 91.3 fL (79-99); MONOCYTES # (AUTO) 0.6 K/uL (0.1-1.0); NEUTROPHILS # (AUTO) 2.7 K/uL (1.8-7.7); NEUTROPHILS % (AUTO) 40.8 % (40.0-77.0); PLATELET COUNT (AUTO) 189 K/uL (130-400); RED BLOOD CELL COUNT(AUTO) 4.39 MIL/uL (4.00-5.50); RED CELL DISTRIBUTION WIDTH 12.6 % (11.0-15.5); WHITE BLOOD COUNT (AUTO) 6.6 K/uL (4.8-10.8)
[2024-06-26 04:05] LABS: ALBUMIN 3.3 g/dL (3.5-5.0); BILIRUBIN,TOTAL 0.4 mg/dL (0.2-1.0); CREATININE 0.8 mg/dL (0.5-1.0); MAGNESIUM 2.1 mg/dL (1.80-2.40); POTASSIUM 3.8 mmol/L (3.5-5.1); TOTAL PROTEIN, SERUM 6.4 g/dL (6.0-8.3)
[2024-06-26] MEDS: PoTASSium chloRIDE 20MEQ ER 20 MEQ ERTAB PO PRN (05:57)
[2024-06-26 08:00] VITALS: BP 130/65; PULSE 65; RESP 20; TEMP 98.6
[2024-06-26 08:29] VITALS: O2SAT 96
[2024-06-26] MEDS: ISOSORBIDE MONO 30MG SR TAB PO SCH (09:21)
[2024-06-26] MEDS: metOPROLol sucCINATE 50 MG TAB.SR.24H PO SCH (09:22)
[2024-06-26] MEDS: levoFLOXacin 500 MG TABLET PO SCH (09:22)
[2024-06-26 12:05] VITALS: BP 127/75; PULSE 75; RESP 20; TEMP 97.6
[2024-06-26] MEDS ORDERED: AEC81 PO (12:47)
[2024-06-26] MEDS ORDERED: LEVO-70 PO (12:47)
[2024-06-26] MEDS ORDERED: Isosorbide Mono 30MG Sr Tab PO (12:47)
[2024-06-26] MEDS ORDERED: FAMO20TA8 PO (12:47)
[2024-06-26] MEDS ORDERED: METO50TA9 PO (12:47)
--- NOTE | 2024-06-26 13:05 | DS ---
Discharge Summary Hospital Course Summary: DATE OF ADMISSION:[06/23/2024] DATE OF DISCHARGE:[06/26/2024] DISPOSITION:[Home] CONDITION:[Medically stable] CONSULTANTS:[Nanny/Household Manager] FOLLOW UP APPOINTMENTS:[PCP 2 to 3 days. Nanny/Household Manager within one week] PROCEDURES:[Lexiscan 06/25/2024 abnormal medical management per it business systems analyst] IMAGING: report attached to summary MICROBIOLOGY: report attached to summary ACTIVITY:[Independent] HOME MEDICATIONS: see med recc NEW MEDICATIONS:[See med rec] EMERGENCY INSTRUCTIONS: The patient was instructed to present to the nearest Emergency departmentr or call 911 once their symptoms will return or worsen Utilities And Maintenance Supervisor(s): The patient has been seen and examined during my rounding, comfortable, no acute events overnight, hemodynamically stable, BP 122/65, heart rate controlled at 66, afebrile, saturating normal on room air. She denies chest pain, no shortness a breath, no palpitations, no nausea, no vomiting. 06/25/24 patient was seen by DENIAL MANAGEMENT REPRESENTATIVE and physician during rounding in room 220 comfortably lying in the bed. Patient's urine is growing E coli. DENIAL MANAGEMENT REPRESENTATIVE was scheduled patient on levofloxacin 500 mg daily. Patient is running sinus bradycardia as low as 58 heart rate. Patient was evaluated by it business systems analyst Dr. Alatorre 2D echo showed more than 70% EF fracture stage I diastolic dysfunction. Patient is pending Lexiscan today 06/25/2024. We will continue to monitor patient in the meantime. A.m. labs 06/26 patient was seen by it business systems analyst throughout the hospitalization urine grew E coli patient will be discharged home on levofloxacin for additional seven days. Per it business systems analyst patient underwent Lexiscan and was abnormal after long discussion with the patient they will pursue with the medical management. Patient was cleared by it business systems analyst to be discharged home. Follow-up with PCP in 2 to 3 days. Follow up with it business systems analyst within one week. Procedure(s): REVIEW OF SYSTEMS CONSTITUTIONAL: Denies fevers, chills, or night sweats. No unintentional weight loss reported. NEUROLOGICAL: Complain of headache and dizziness Denies motor weakness, sensory deficit, gait abnormalities, or tremors. ENT: No hearing loss, otalgia, otorrhea, rhinitis, rhinorrhea, hoarseness, or sore throat. CARDIOVASCULAR: Complain of chest pain and palpitation Denies dyspnea on exertion, orthopnea, paroxysmal nocturnal dyspnea, claudication. PULMONARY: Denies any shortness of breath, cough, phlegm/sputum, hemoptysis, pleuritic chest pain. SLEEP: Denies morning headaches, daytime somnolence or napping. Denies difficulty falling asleep, staying asleep, waking from sleep. Denies knowledge of snoring. GASTROINTESTINAL: Denies any type of dysphagia to either liquids or solids. Denies vomiting, pyrosis, early satiety, abdominal pain, diarrhea, constipation, or changes in stool consistency or caliber. Denies coffee-ground emesis, hematemesis, hematochezia, or melanotic stools. GENITOURINARY: Denies frequency, urgency, nocturia, hematuria or incontinence (Storage/Irritative symptoms.) Low urinary stream, straining to void, urinary intermittency or hesitancy, splitting of the voiding stream, terminal dribbling. ENDOCRINOLOGIC: Denies polyuria, polydipsia, polyphagia or heat/cold intolerances. HEMATOLOGIC: Denies thrombophilia/previous clots, or coagulopathy/bleeding disorders. ONCOLOGIC: Denies personal history of malignancy. DERMATOLOGIC: Denies rashes or pruritus. PSYCHIATRIC: Denies any suicidal or homicidal ideation. Denies hallucinations. PHYSICAL EXAM GENERAL APPEARANCE: Morbidly obese The patient is awake, alert, and oriented, in no acute cardiopulmonary distress. NEUROLOGICAL: Cranial nerves II-XII grossly intact. Motor is 5/5 in bilateral upper and lower extremities proximal to distal. No sensory deficits. HEENT: Face is symmetric. Pupils are equal and reactive. Extraocular movements are intact. NECK: Supple. No JVD. No thyromegaly. No submental, submandibular, pre- /postauricular, occipital or supraclavicular lymphadenopathy. CHEST: Normal chest expansion. No Telemetry. LUNGS: Absence of any rales, rhonchi or any wheezing. CARDIOVASCULAR: Regular. S1 and S2 normal. No appreciable rubs, murmurs or gallops. ABDOMEN: Soft, nontender, and nondistended. There is no rebound, voluntary guarding, or rigidity. : Deferred. No Garcia. EXTREMITIES: Non-edematous and not cyanotic. No clubbing. Good capillary refill. SKIN: No skin breakdown. Assessment/Plan: ASSESSMENT: New onset SVT POA Chest pain rule out ACS POA Uncontrolled hypertension POA Diastolic dysfunction POA Headache POA Morbid obesity POA Hyperglycemia (denies history of diabetes )POA Home Medications: Reported Medications Metoprolol Succinate (Metoprolol Succinate) 50 Mg Tab.er.24h, 1 TAB PO DAILY for 30 Days, #30 TAB 0 Refills 06/24/24 Discontinued Scripts Cetirizine HCl (Zyrtec Syrup 1 mg/1 ml) 1 Mg/1 Ml Solution, 10 MG PO BID for 5 Days, #120 ML Prov:MOI ANGEL 04/06/22 Famotidine (Pepcid) 20 Mg Tablet, 20 MG PO BID, #30 TAB Prov:MOI ANGEL 04/06/22 Prednisone (Prednisone) 20 Mg Tablet, 40 MG PO DAILY for 5 Days, #10 TAB Prov:MOI ANGEL 04/06/22 Time spent arranging discharge: 31-60 minutes ATTESTATION BY PHYSICIAN I have seen and examined the patient. I reviewed the documentation, medical decision making, and treatment plan as noted by the mid-level provider above. I agree with the findings and plan of care. MD TAMIKA Mead KATARZYNA B WEARING APPAREL ASSEMBLER Jun 26, 2024 13:05
--- NOTE | 2024-06-26 14:08 | NUR ---
GIVEN DISMISSAL INSTRUCTIONS, VERBALIZED UNDERSTANDING. REMOVED SALINE LOCK FROM RIGHT UPPER ARM AREA, IV SITE WITHOUT REDNESS NOTED. REMOVED TELE PACK.
--- NOTE | 2024-06-26 14:16 | NUR ---
TAKEN TO PRIVATE CAR ALONG WITH PERSONAL BELONGINGS VIA WHEELCHAIR BY VERONICA BONILLA.
== END 2024-06-26 14:10 | disposition home or self-care (01) ==
LOC: EDH 20:48 → EDHIP 22:44 → INTOOBSV 22:44 → 2DH 06-24 14:11
PROVIDERS: ADMIT Internal Medicine; ATTEND Internal Medicine
DX: I47.10 Supraventricular tachycardia, unspecified (principal); I16.1 Hypertensive emergency; I24.9 Acute ischemic heart disease, unspecified; E66.01 Morbid (severe) obesity due to excess calories; R73.9 Hyperglycemia, unspecified; R51.9 Headache, unspecified; R07.89 Other chest pain; E78.5 Hyperlipidemia, unspecified; I48.91 Unspecified atrial fibrillation; Z90.710 Acquired absence of both cervix and uterus; Z79.899 Other long term (current) drug therapy
CPT/HCPCS: 99285; 82550; 84484 ×5; 80048; 83880; 85025 ×3; 85610; 85730; 87086 ×2; 87186; 81001; 36415 ×3; 71045; 96374; 93005 ×2; 83036; 84443; 83735 ×2; 80061; 80053 ×2; 82948; 93306; 93356; 96375; 93017; 78452; G0378 ×41; J2785; A9500 ×2; A4510; J3490